=== PATIENT | male | born 1975 | race Caucasian/White ===

== ENCOUNTER 2020-05-20 14:27 | Outpatient (REF) | payer MEDICARE, MEDICAID, SELFPAY ==
--- NOTE | 2020-05-20 14:54 | MR_ITS ---
MRI OF THE BRAIN WITHOUT IV CONTRAST INDICATION: Migraine. COMPARISON: None available. TECHNIQUE: Multiplanar multisequence MR imaging of the brain was obtained without IV contrast. FINDINGS: There is no hydrocephalus, extra-axial surface collection, or herniation. There are mild to moderate T2 signal changes throughout the supratentorial subcortical and deep white matter in a nonspecific distribution. The major flow voids at the skull base are preserved. There is no acute infarct on diffusion-weighted imaging. There is no intracranial hemorrhage on the gradient recalled echo acquisition. The midline structures are normal. The cerebellar tonsils are normally positioned. The cerebellum and brainstem are normal. The craniocervical junction is normal. Osseous marrow signal intensity is homogenous. The visualized soft tissues are unremarkable. There is leftward deviation of the nasal septum with a leftward directed nasal septal spur. Mild mucosal thickening throughout the paranasal sinuses bilaterally. IMPRESSION: There are mild to moderate T2 signal changes throughout the supratentorial subcortical and deep white matter in a nonspecific distribution.
== END 2020-05-20 14:28 | disposition home or self-care (01) ==
LOC: HO.MRI 14:27
PROVIDERS: Visit Provider Family Medicine
DX: G43.019 Migraine without aura, intractable, without status migrainosus (principal)
CPT/HCPCS: 70551

== ENCOUNTER 2020-08-27 13:01 | Outpatient (REF) | payer MEDICARE, MEDICAID, SELFPAY ==
--- NOTE | 2020-08-27 13:15 | XR_ITS ---
EXAMINATION: XR CERVICAL SPINE CLINICAL INFORMATION: Neck pain. COMPARISON: None. TECHNIQUE: 3 views of the cervical spine were obtained. FINDINGS: There is mild straightening of cervical lordosis. The vertebral heights and alignment are normal. No visible acute fracture, dislocation or subluxation seen. The neural foramina are mildly narrowed bilaterally at C5-C6 and C6-C7 disc levels. No lytic or sclerotic process seen. The prevertebral soft tissues are normal. XR/XR cervical spine 4V IMPRESSION: Mild straightening of cervical lordosis. Mild bilateral narrowing of C5-C6 and C6-C7 neural foramina from uncovertebral hypertrophic changes.
== END 2020-08-27 13:02 | disposition home or self-care (01) ==
LOC: HO.XRAY 13:01
PROVIDERS: PCP Family Medicine; Visit Provider Family Medicine
DX: M54.2 Cervicalgia (principal)
CPT/HCPCS: 72050

== ENCOUNTER 2022-04-21 14:07 | Outpatient (REF) | payer MEDICARE, MEDICAID, SELFPAY ==
[2022-04-21 15:07] LABS: Alanine Aminotransferase 27 U/L (0-40); Albumin Level 4.5 g/dL (3.5-5.0); Alkaline Phosphatase 52 U/L (39-117); Aspartate Amino Transferase 19 U/L (5-37); Bilirubin Direct 0.2 mg/dL (0.0-0.5); Bilirubin Total 0.3 mg/dL (0.0-1.0); Lipase 38 U/L (8-78)
[2022-04-23 14:02] LABS: Transglutaminase Ab IgG <1.0 U/mL; Transglutaminase IgA <1.0 U/mL
== END 2022-04-21 14:08 | disposition home or self-care (01) ==
LOC: HO.LAB 14:07
PROVIDERS: PCP Family Medicine; Visit Provider Nurse Practitioner Family
DX: R10.9 Unspecified abdominal pain (principal); K59.00 Constipation, unspecified
CPT/HCPCS: 36415; 80076; 83690; 84443; 86364; 99202

== ENCOUNTER 2022-05-12 08:10 | Outpatient (REF) | payer MEDICARE, MEDICAID, SELFPAY ==
--- NOTE | ~2022-05-12 | US_ITS ---
EXAMINATION: US ABDOMEN COMPLETE CLINICAL INFORMATION: Right upper quadrant pain. COMPARISON: Ultrasound abdomen complete 09/06/2017 TECHNIQUE: Real-time imaging of the abdominal viscera. Technically limited study secondary to bowel gas. FINDINGS: PANCREAS: Not well-visualized ABDOMINAL AORTA: Not well visualized INFERIOR VENA CAVA: Not well visualized LIVER: The liver is slightly enlarged. The right lobe measures 18.4 cm in length. The liver contour is normal. Parenchymal echogenicity is normal. No focal hepatic lesion. There is no intrahepatic biliary duct dilatation seen. GALLBLADDER: Not well visualized. COMMON BILE DUCT: Normal in caliber measuring 0.3 cm in diameter. RIGHT KIDNEY: Lobulated in shape. Prominent hypoechoic area in the midpole measuring 2.3 x 1.9 x 1.8 cm, question related to lobulated contour. No hydronephrosis or renal calculi. The kidney measures 9.2 cm in maximum dimension. LEFT KIDNEY: Lobulated in shape. No hydronephrosis. No renal calculi or focal parenchymal lesions. The kidney measures 10.5 cm in maximum dimension. SPLEEN: Normal. The spleen measures 10.5 cm in maximum dimension. FREE FLUID: None. US/US abdomen complete IMPRESSION: Very limited exam. The gallbladder pancreas, aorta and IVC are not well visualized. Slightly enlarged liver. Lobulated contour of the kidneys. 2.3 x 1.8 x 3.9 cm hypoechoic area in the mid pole of the right kidney probably related to lobulated contour. Follow-up CT or MR of the kidneys for confirmation recommended.
== END 2022-05-12 08:11 | disposition home or self-care (01) ==
LOC: HO.US 08:10
PROVIDERS: Visit Provider Nurse Practitioner Family
DX: R10.11 Right upper quadrant pain (principal)
CPT/HCPCS: 76700

== ENCOUNTER 2024-06-29 11:26 | Outpatient (REF) | payer MEDICARE, MEDICAID, SELFPAY ==
[2024-06-29 13:32] LABS: Alanine Aminotransferase 30 U/L (0-40); Albumin Level 4.2 g/dL (3.5-5.0); Alkaline Phosphatase 65 U/L (39-117); Anion Gap 11 (12-20); Aspartate Amino Transferase 26 U/L (5-37); Bilirubin Direct 0.2 mg/dL (0.0-0.5); Bilirubin Total 0.5 mg/dL (0.0-1.0); Blood Urea Nitrogen 11 mg/dL (9-16); Calcium 9.2 mg/dL (8.4-10.2); Carbon Dioxide 29 mmol/L (22-29); Chloride 103 mmol/L (96-108); Cholesterol 186 mg/dL (<200); Estimated Glomerular Filt Rate > 60; Glucose Random 105 mg/dL (60-115); HDL Cholesterol 39 mg/dL (>40); LDL Cholesterol Calculated 130 mg/dL (<100); Potassium 3.6 mmol/L (3.3-5.1); Sodium 139 mmol/L (135-145); Total Protein 6.9 g/dL (6.5-8.0); Triglycerides 87 mg/dL (<150)
[2024-06-29 17:42] LABS: CT PCR NOT DETECTED (Not Detect.); NG PCR NOT DETECTED (Not Detect.)
[2024-06-30 03:53] LABS: HIV AB/AG Nonreactive (Nonreactive); HIV Num 1 0.09 S/CO (0.00-0.99); ~HepC Num1 0.13 S/CO (0.00-0.79); ~Hepatitis C Antibody Nonreactive (Nonreactive)
== END 2024-06-29 11:27 | disposition home or self-care (01) ==
LOC: HO.HHCL 11:26
PROVIDERS: Visit Provider Family Medicine
DX: Z11.4 Encounter for screening for human immunodeficiency virus [HIV] (principal); E66.811 Obesity, class 1; Z20.2 Contact with and (suspected) exposure to infections with a predominantly sexual mode of transmission
CPT/HCPCS: 36415; 80048; 80061; 80076; 86803; 87389; 87491; 87591

== ENCOUNTER 2025-02-11 10:20 | Outpatient (AMB) | payer MEDICARE, MEDICAID, SELFPAY ==
--- OUTSIDE RECORDS SUMMARY | 2024-11-13 06:30 | XMS_ITS ---
Author Organization [facility] Address [address] [place] [id number] Care Team Providers Care Migration Agent Name Role Phone Magdalena CHAPIN, Ave Primary Care Provider Bette bettyilaHu Wilson [phone] REASON FOR VISIT screening colonoscopy Encounters Encounter Location Date Provider Diagnosis [facility] [address] [place] [id number] 11/13/2024 Hu Villanueva Plan Of Treatment No Information Progress Notes * JONO PEMBERTONDOB: 6 (50 yo M)Acc No.[id number]:11/13/2024 Progress Notes Patient: JONO ONEILL Provider: Shaun Villanueva MD :1975 A ge:49 Y S ex:Male Date:11/13/2024 Address:[address] [place], [place] [id number] Pcp:Ave Nichols MD Subjective: * Chief Complaints: * 1 . Screening colonoscopy. * Medical History: Objective: * Vitals: Assessment: Plan: * Treatment: * * The named appointment provid er may or may not be the originator of this progress note, and it is not deemed complete until electronically signed by the appointment provider. Sign off status: Pending * Provider: Shaun Villanueva MD Date: 11/13/2024 Generated for Jill strange/Nataliya/Fawaditting on: 02/11/2025 11:10 AM EDT
--- NOTE | 2025-02-11 10:22 | MHC.OFFVIS ---
Vital Signs 02/11/25 10:23 Height 5 ft 7 in Weight 190 lb BMI 29.8 BP 134/78 Blood Pressure Location Rt brachial Position Sitting Pulse 76 Pulse Source Pulse Oximeter Pulse Oximetry (%) 95 Oxygen Delivery Method Room Air Intake Visit Reasons: Initial colo screening, [facility] 2021. Intake Note: NEEDS ASL INT. Initial colo rescreening. Pt last seen 2021 but never had procedure. CC; C.O. epigastric pain, diarrhea w/o hemo evidence, GERD. Sx are intermittent per pt. Pt is not taking any of his previously Rx GI meds. Technology Engineer Required: Yes Technology Engineer Services: Technology Engineer Present Technology Engineer Name: Melanie [id number] Information Interpreted: clinical only Accompanied by: Self / Same As Patient Allergies animal dander Allergy (Unknown, Verified 02/11/25 10:23) Unknown HPI HPI Initial colo screening, [facility] 2021.: Details: LAST VISIT: Abdominal pain Right upper quadrant pain and cramping postprandially. Will rule out cholecystitis cholelithiasis, biliary colic. Patient will be sent for ultrasound. Will also rule out celiac disease. Check his lipase to rule out pancreatitis. Patient does not drink alcohol RUQ abdominal pain Patient reports right upper quadrant pain just below his rib area. Patient reports also feeling bloated postprandially. Patient reports that the pain is related to the food that he eats. Usually happens postprandially. Will send patient for ultrasound to rule out cholelithiasis, cholecystitis, biliary colic. GERD (gastroesophageal reflux disease) Postprandial are heartburn, epigastric burning postprandially. Patient denies dyspepsia, dysphagia or odynophagia. Denies any nausea or vomiting. Will send patient for H pylori testing. Patient is taking lower PPI for now we can continue. Will treat empirically if positive. Patient will need to go for colonoscopy, sent to us from PCP for colorectal screening, age-appropriate. Patient will also be sent for upper endoscopy due to his symptoms and long use of PPI. I will see patient in 2 months, sooner on as needed basis. Patient is agreeable to this plan and verbalizes understanding of instructions. He was given the opportunity to ask questions and all questions answered. ? Thank you for allowing me to participate in his care Plan Orders Orders Pancreatic Elastase-1 04/21/22 R10.9 Transglutaminase IgA 04/21/22 R10.9 Transglutaminase Ab IgG 04/21/22 R10.9 H pylori Ag Stool 04/21/22 K21.9 Lipase 04/21/22 R10.9 Liver Panel 04/21/22 R10.9 TSH reflex Free T4 04/21/22 Z12.11 US abdomen complete 04/21/22 R10.11 Medications New docusate sodium 100 mg PO BEDTIME 90 caps 3RF K59.00 sennosides (Natural Senna Laxative) 8.6 mg PO BEDTIME 90 tabs 3RF constipation K59.00 TODAY'S VISIT Patient is here today to discuss going for colonoscopy. Last seen in April of 2022 for same. Patient had epigastric pain, right upper quadrant pain postprandially. Was sent for ultrasound and blood work. Ultrasound unable to visualize gallbladder and pancreas, otherwise normal blood work. Patient continues to have epigastric pain postprandially, occasional abdominal bloating. Currently is not taking any PPI. Patient to reports that usually those symptoms are aggravated by food like cheese, pizza. Patient took omeprazole in the past and reports it was helpful. Patient is not moving his bowels daily. Abdominal cramping usually before he has to have a bowel movement. Symptoms improved after patient has a bowel movement. Patient does admit to have occasional diarrhea. Sometimes several bowel movements of loose stools throughout the day. Denies melena, hematochezia. [facility] Medical History Asthma Acquired chest and rib deformity Major depressive disorder Hearing loss of both ears Review of Systems Const Denies weight gain and Denies weight loss ENT Reports no additional complaints, Denies dysphagia and Denies odynophagia Card Reports no additional complaints Resp Reports no additional complaints GI Reports abdominal pain, Denies belching, Denies melena, Reports bloating, Reports hematochezia (Occasional), Reports change in stool character, Reports constipation, Denies dysphagia, Denies excessive flatus, Denies dyspepsia, Reports heartburn, Denies diarrhea, Denies loose stools, Denies nausea, Denies odynophagia and Denies vomiting Reports no additional complaints Musc Reports no additional complaints Neuro Reports no additional complaints Psych Reports no additional complaints Endo Reports no additional complaints Physical Exam Vital Signs: Last Vital Signs Pulse 76 02/11/25 10:23 BP 134/78 02/11/25 10:23 Pulse Ox 95 02/11/25 10:23 Oxygen Delivery Method Room Air 02/11/25 10:23 BMI result Body Mass Index 29.8 Const General: healthy appearing, no acute distress and well developed Nutritional Appearance: well nourished and obese Orientation/consciousness: patient oriented x3 HEENT Head: Yes normal to inspection, Yes normocephalic and Yes atraumatic Face and sinus: Yes normal facial exam Mouth: Normal oral and palatal mucosa present Throat: Yes posterior oropharynx normal, Yes tonsils normal and Yes uvula midline Eyes General: appearance normal, both eyes and all related structures Neck Neck: Yes normal visual inspection, Yes full ROM and Yes trachea midline Thyroid: Thyroid normal Resp Effort & Inspection: normal respiratory effort, able to speak in complete sentences, no tracheal deviation and symmetric chest movement Auscultation: clear to auscultation bilaterally Cardio Rate: regular rate Heart sounds: S1 normal heart sound present, S2 normal heart sound present, no gallops and no murmurs GI Inspection: Yes normal to inspection, No distended and Yes obesity Palpation (GI): Soft to palpation, not firm, nontender and No hepatosplenomegaly present Auscultation: normal bowel sounds General: Yes no CVA tenderness Back/Spine/Pelvis Back: no CVA tenderness Skin General skin exam: elasticity normal, turgor normal and dry skin Neuro General: patient oriented x3 Psych Appearance: grossly normal Mental Status: mental status grossly normal Speech and movement: Normal speech and movement present Affect: normal affect Attitude: cooperative Thought process: Normal thought process present Thought content: Normal thought content present Insight: Good insight present (Psych) Judgement: Good judgement present (Psych) Results Reviewed Results Reviewed: Laboratory Tests 04/21/22 14:22 Total Bilirubin 0.3 Direct Bilirubin 0.2 AST 19 ALT 27 Alkaline Phosphatase 52 Tiss Transglutamin IgG <1.0 Tiss Transglutamin IgA <1.0 Assessment & Plan Assessment & Plan (1) Abdominal pain: Code(s): R10.9 - Unspecified abdominal pain Qualifiers: Abdominal location: epigastric Qualified Code(s): R10.13 - Epigastric pain (2) Gastroesophageal reflux disease: Code(s): K21.9 - Gastro-esophageal reflux disease without esophagitis Qualifiers: Esophagitis presence: esophagitis presence not specified Qualified Code(s): K21.9 - Gastro-esophageal reflux disease without esophagitis (3) Screen for colon cancer: Code(s): Z12.11 - Encounter for screening for malignant neoplasm of colon (4) Postprandial epigastric pain: Code(s): R10.13 - Epigastric pain (5) Constipation: Code(s): K59.00 - Constipation, unspecified Qualifiers: Constipation type: slow transit constipation Qualified Code(s): K59.01 - Slow transit constipation Plan Patient will start taking omeprazole every morning half an hour before breakfast. Patient was encouraged to avoid dietary triggers in late night snacking. Staying upright for minimal 3 hours after meals discussed the patient with patient will be sent for upper endoscopy. Her symptoms have been on ProAir. Without PPI patient is having significant symptoms. Discussed with him low FODMAP diet as he is having multiple episodes of abdominal bloating especially after meals. Occasional constipation and loose stools. Fiber recommended patient, however he will start taking Dulcolax to help him empty bowels completely. What to expect before during and after procedure discussed with patient. Stressed importance of good bowel prep in clear liquid diet day before procedure. Message sent to Surgical schedulers to book procedure for patient. I will see patient after the procedure, sooner on as needed basis. He is agreeable to this plan and verbalizes understanding of instructions. He was given the opportunity to ask questions and all questions answered. Thank you for allowing me to participate in his care Medications: New bisacodyl (Dulcolax (bisacodyl)) 10 mg (2 x 5 mg) PO BEDTIME 180 tabs 4RF omeprazole 20 mg PO DAILY 30 caps 3RF polyethylene glycol 3350 (Miralax) As directed by gastroenterology department at [facility] 238 grams PO ONCE 238 grams 0RF Z12.11 - Encounter for screening for malignant neoplasm of colon Discontinued sennosides (Natural Senna Laxative) Discontinued Reason: Doctor's Order 8.6 mg PO BEDTIME 90 tabs 3RF constipation K59.00 - Constipation, unspecified Coding Level of Care Code Est Pt Level 4 (18540) Complex EM visit Add On G2211 Diagnoses Epigastric pain R10.13 Abdominal location: epigastric Gastroesophageal reflux disease, unspecified whether esophagitis present K21.9 Esophagitis presence: esophagitis presence not specified Screen for colon cancer Z12.11 Postprandial epigastric pain R10.13 Slow transit constipation K59.01 Constipation type: slow transit constipation Time Spent (min) 40 Comment 20 minutes spent with patient and additional 10 minutes spent reviewing his records
[2025-02-11 10:23] VITALS: BP 134/78; PULSE 76; O2SAT 95; BMI 29.8
--- OUTSIDE RECORDS SUMMARY | 2025-02-11 11:10 | XMS_ITS | Clinical Summary ---
Author Organization [facility] Address [address] [place] [address] Care Team Providers Care Vp Training Name Role Phone Unavailable Primary Care Provider Unavailabl e Social History Tobacco Use Types Packs/Day Years Used Date Smoking Tobacco: Never Assessed Sex and Gender Information Value Date Recorded Sex Assigned at Not on file Legal Sex Male 1:27 AM EST Gender Identity Not on file Sexual Orientation Not on file Plan of Treatment Health Maintenance Due Date Last Done Comments DTaP,Tdap,and Td Vaccines (1 - Tdap) 02/06/1995 Hepatitis B Vaccines (1 of 3 - 19+ 3-dose series) 02/06/1995 Cholesterol Screening (Lipid Panel) 07/11/2022 Colorectal Cancer Screening: Colonoscopy 07/11/2022 Depression Screening 07/11/2022 HIV Screening 07/11/2022 Hepatitis C Screening 07/11/2022 Social Influencers of Health Screening 07/11/2022 COVID-19 Vaccine ( - 2023-2 5 season) 2024 Influenza Vaccine (#1) 2025 HIB Vaccines Aged Out No longer eligi ble based on patient's age to complete this topic HPV Vaccines Aged Out No longer eligi ble based on patient's age to complete this topic Hepatitis A Vaccines Aged Out No long er eligible based on patient's age to complete this topic IPV Vaccines Aged Out No longer eligi ble based on patient's age to complete this topic MMR Vaccines Aged Out No longer eligi ble based on patient's age to complete this topic Meningococcal ACWY Vaccine Aged Out N o longer eligible based on patient's age to complete this topic Meningococcal B Vaccine Aged Out No l onger eligible based on patient's age to complete this topic Pneumococcal Vaccine: Pediat rics (0 to 5 Years) and At-Risk Patients (6 to 64 Years) Aged Out No longer eligible b ased on patient's age to complete this topic RSV Immunization Patients Un sadi 20 months Aged Out No longer eligible b ased on patient's age to complete this topic Varicella Vaccines Aged Out No longer eligible based on patient's age to complete this topic
--- OUTSIDE RECORDS SUMMARY | 2025-02-11 11:11 | XMS_ITS | Encounter Summary ---
Author Organization [employer] Address [address] [facility] [address] [place] [address] Care Team Providers Care Revising Clerk Name Role Phone Ave Nichols MD Primary Care Provider [phone] Encounter Details Date Type Department Care Team ([facility] st Contact Info) Description 10/29/2024 Orders Only [facility] MEDICINE [address] [place] [address] Ave Nichols MD [address] [place] [address] Social History Tobacco Use Types Packs/Day Years Used Date Smoking Tobacco: Former Cigarettes Smokeless Tobacco: Never Alcohol Use Standard Drinks/Week Comments Not Currently 0 (1 standard drink = 0.6 oz pur e alcohol) Sex and Gender Information Value Date Recorded Sex Assigned at Male 06/07/2022 10:27 AM EDT Legal Sex Male 10:27 AM EDT Gender Identity Male 06/07/2022 10:27 AM EDT Sexual Orientation Straight 09/06/2022 4: 12 PM EST documented as of this encounter Plan of Treatment Not on file documented as of this encounter Visit Diagnoses Not on filedocumented in this encounter Care Teams Revising Clerk Relationship Specialty Start Date End Date Ave Nichols MD [address] [place] [address] PCP - General Family Medicine 08/29/14 documented as of this encounter
== END 2025-02-11 11:00 | disposition home or self-care (01) ==
LOC: HO.HGI 10:21
PROVIDERS: PCP Family Medicine; Visit Provider Nurse Practitioner Family
DX: R10.13 Epigastric pain (principal); K21.9 Gastro-esophageal reflux disease without esophagitis; K59.01 Slow transit constipation
CPT/HCPCS: 99214; G2211

== ENCOUNTER → 2025-02-11 10:20 | Outpatient (BNVA) | payer MEDICARE, MEDICAID, SELFPAY | PROVIDERS: PCP Family Medicine; Visit Provider Nurse Practitioner Family | DX: Z12.11 Encounter for screening for malignant neoplasm of colon (principal); R10.13 Epigastric pain; K21.9 Gastro-esophageal reflux disease without esophagitis; K59.01 Slow transit constipation; Z79.899 Other long term (current) drug therapy | CPT/HCPCS: 99212 ==

== ENCOUNTER 2025-06-17 10:33 | Outpatient (REF) | payer MEDICARE, MEDICAID, SELFPAY ==
--- OUTSIDE RECORDS SUMMARY | 2025-06-17 09:15 | XMS_ITS | Encounter Summary ---
Author Organization [facility] Address [address] [place] [address] [facility] [place] [address] Care Team Providers Care Industrial Renderer Name Role Phone Ave Nichols MD Primary Care Provider +1- [phone] DuaneSafiaa Unavailable Reason for Referral * Consultation (Routine) - Authorized Specialty Diagnoses / Procedures Referred By Reese frsaer Referred To Contact Dental Special Collections Librarian / Dentistry Diagnoses Bilateral deafness Closed fracture of tooth, initial encounter Ave Nichols MD [address] [place] [phone] Phone: tel: fax: Referral ID Status Reason Start Date Expiration Date Visits Requested Visits Authorized [id number] Authorized Consult and Treat 06/17/2025 06/17/2026 1 1 Scheduling Instructions broken tooth number 31. 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 Pt is deaf Reason for Visit * Reason Comments Annual Exam Encounter Details Date Type Department Care Team (Late st Contact Info) Description 06/17/2025 9:15 AM EST Office Visit [facility] [address] [place] [phone] Nichols MD [address] [place] [address] [phone] Recurrent major depressive disorder, in partial remission (CMS/HCC) (Primary Dx); Overweight (BMI 25.0-29.9); Bilateral deafness; Encounter for immunization; Mild intermittent asthma, unspecified whether complicated; Impacted cerumen of left ear; Closed fracture of tooth, initial encounter; Dietary counseling; Exercise counseling; Overweight; Other specified health status Social History Tobacco Use Types Packs/Day Years Used Date Smoking Tobacco: Former Cigarettes Smokeless Tobacco: Never Alcohol Use Standard Drinks/Week Comments Not Currently 0 (1 standard drink = 0.6 oz pur e alcohol) Depression Answer Date Recorded Patient Health Questionnaire-9 Score 4 06/17/2025 Patient Health Questionnaire-9 Score 4 06/17/2025 Last PHQ-9: Questionnaire Data Not on file 1 08/17/2024 Housing Stability Answer Date Recorded What is your housing situation today? I have doni haile 06/17/[address] you li ve. Do you have problems with any of the following? None of the above 06/17/2025 Food Insecurity Answer Date Recorded Within the past 12 months, y ou worried that your food would run out before you got money to buy more: Never True 06/17/2025 Within the past 12 months,th e food you bought just didn't last and you didn't have enough money to get more: Never True 05/2025 Transportation Answer Date Recorded In the past 12 months, has l ack of transportation kept you from medical appts, meetings, work or from getting things needed for daily living? No 06/17/2025 Utilities Answer Date Recorded In the past 12 months, has t he electric, gas, oil or water company threatened to shut off services in your home? No 06/17/2025 Depression Answer Date Recorded Patient Health Questionnaire-2 Score 0 06/17/2025 Internet Access Answer Date Recorded Internet Access Q1 No 06/17/2025 Internet Access Q2 Not on file 06/17/2025 Sex and Gender Information Value Date Recorded Sex Assigned at Male 06/07/2022 10:27 AM EDT Legal Sex Male 10:27 AM EDT Gender Identity Male 06/07/2022 10:27 AM EDT Sexual Orientation Straight 09/06/2022 4: 12 PM EST documented as of this encounter Last Filed Vital Signs Vital Sign Reading Time Taken Comments Blood Pressure 134/72 06/17/2025 9:32 AM EST Pulse 67 06/17/2025 9:32 AM EST Temperature 37.2 C (98.9 F) 06/17/2025 9:32 AM EST Respiratory Rate 20 06/17/2025 9:32 AM EST Oxygen Saturation 97% 06/17/2025 9:32 AM EST Inhaled Oxygen Concentration - - Weight 86.5 kg (190 lb 9.6 oz) 06/17/2025 9:32 A M EST Height 172.7 cm (5' 8 ) 06/17/2025 9:32 AM EST Body Mass Index 28.98 06/17/2025 9:32 AM EST documented in this encounter Functional Status * Over the past 2 weeks, how often have you been bothered by any of the following problems? Question Answer Date of Assessment Author Patient Health Questionnaire-2 Score 0 06/08 9:35 AM Sofy Griffith MA * Little interest or pleasure in doing things Answer Date of Assessment Author Not at all 06/17/2025 9:35 AM Darius Griffith MA * Feeling down, depressed, or hopeless Answer Date of Assessment Author Not at all 06/17/2025 9:35 AM Darius Griffith MA * Trouble falling or staying asleep, or sleeping too much Answer Date of Assessment Author Several days 06/17/2025 9:35 AM Darius Griffith MA * Feeling tired or having little energy Answer Date of Assessment Author Several days 06/17/2025 9:35 AM Darius Griffith MA * Poor appetite or overeating Answer Date of Assessment Author Not at all 06/17/2025 9:35 AM Darius Griffith MA * Feeling bad about yourself - or that you are a failure or have let yourself or your family down Answer Date of Assessment Author Not at all 06/17/2025 9:35 AM Darius Griffith MA * Trouble concentrating on things, such as reading the newspaper or watching television Answer Date of Assessment Author More than half the days 06/17/2025 9:35 AM EST Sofy Ritter MA * Moving or speaking so slowly that other people could have noticed? Or the opposite - being so fidgety or restless that you have been moving around a lot more than usual. Answer Date of Assessment Author Not at all 06/17/2025 9:35 AM Darius Griffith MA * Thoughts that you would be better off or hurting yourself in some way Answer Date of Assessment Author Not at all 06/17/2025 9:35 AM Darius Griffith MA * Patient Health Questionnaire-9 Score Answer Date of Assessment Author 4 06/17/2025 9:35 AM Darius Griffith MA * How difficult have these problems made it for you to do your work, take care of things at home, or get along with other people? Answer Date of Assessment Author Not difficult at all 06/17/2025 9:35 AM Sofy Plummer MA documented as of this encounter Progress Notes * Ave Nichols MD - 06/17/2025 9:15 AM EST Images from the original note were not included. Rosanne Merchant is a 50 y.o. Deaf male with mild intermittent asthma and depression who presents to the office today here for chronic medical conditions and comprehensive annual evaluation. Hungarian Sign Language used during visit Saw GI but did not get apt yet. Has prep. Reports broken tooth in lower back. Uncomfortable due to sharp but not pain. No other concerns. Social History Tobacco: denied Drugs: none Alcohol: No Sexuality: Denies current sexual activity Suicide/Depression: The patient denies any present symptoms of depression or anxiety. Review of Systems Constitutional: Negative for fever and unexpected weight change. Respiratory: Negative for shortness of breath. Cardiovascular: Negative for chest pain. Gastrointestinal: Negative for abdominal pain. Genitourinary: Negative for difficulty urinating. Current Outpatient Medications: albuterol 108 (90 Base) MCG/ACT inhaler, INHALE 2 PUFFS BY MOUTH EVERY 4 HOURS NEEDED FOR SHORTNESS OF BREATH, Disp: 8.5 g, Rfl: 4 carbamide peroxide (Debrox) 6.5 % otic solution, Administer 5-10 drops into affected ear(s) 2 timesdaily for 4 days., Disp: 30 mL, Rfl: 0 fluticasone-salmeterol (Advair) 45-21 MCG/ACT inhaler, Inhale 2 puffs in the morning and at bedtime., Disp: 12 g, Rfl: 11 Allergies Allergen Reactions Cat Dander Milk (Cow) Dunnell Oil History reviewed. No pertinent past medical history. History reviewed. No pertinent surgical history. No family history on file. Objective Visit Vitals BP 134/72 (BP Location: Left arm, Patient Position: Sitting, BP Cuff Size: Adult) Pulse 67 Temp 98.9 ??F (37.2 ??C) (Oral) Resp 20 Ht 5' 8 (1.727 m) Wt 190 lb 9.6 oz (86.5 kg) SpO2 97% BMI 28.98 kg/m?? Smoking Status Former BSA 2.04 m?? Physical Exam Constitutional: Appearance: Normal appearance. HENT: Right Ear: Tympanic membrane normal. Left Ear: There is impacted cerumen. Ears: Comments: Sensineural hearing loss Nose: Nose normal. Mouth/Throat: Pharynx: Oropharynx is clear. Comments: Cracked tooth Eyes: Extraocular Movements: Extraocular movements intact. Pupils: Pupils are equal, round, and reactive to light. Cardiovascular: Rate and Rhythm: Normal rate and regular rhythm. Heart sounds: Normal heart sounds. Pulmonary: Effort: Pulmonary effort is normal. Breath sounds: Normal breath sounds. No wheezing. Abdominal: General: Abdomen is flat. Palpations: Abdomen is soft. Tenderness: There is no abdominal tenderness. Musculoskeletal: General: Normal range of motion. Skin: General: Skin is warm and dry. Neurological: General: No focal deficit present. Mental Status: He is alert. Psychiatric: Mood and Affect: Mood normal. Behavior: Behavior normal. 50 y.o. male annual evaluation. Assessment & Plan Recurrent major depressive disorder, in partial remission (CMS/HCC) -No suicidial or homacidial ideation. Followed by [facility]. Declines therapy or medicaion. Overweight (BMI 25.0-29.9) Dietary Recommendations: Fruits, vegetables, whole grains, protein foods, and fat-free or low-fat dairy products are healthychoices. Eat different types of protein foods in your diet. This can include seafood, lean meats, poultry, beans, peas, lentils, nuts, seeds, soy products, and eggs. Limit foods and beverages higher in added sugars, saturated fat, and sodium. Exercise Recommendations: At least 150 minutes of moderate-intensity physical activity per week, or an equivalent combinationof moderate- and vigorous-intensity activity Orders: Hepatic Function Panel; Future Lipid Panel, Standard; Future Basic Metabolic Panel; Future Bilateral deafness -Patient needs multi punch operator for all visits. Please make note of this in any referrals. -has services with [facility] Orders: Referral to [facility] Dental Adult; Future Encounter for immunization Orders: FLU VACCINE TRIVALENT [id number] (Fluarix) 19 yrs + TDAP VACCINE 7 yrs + HEPATITIS B VACCINE ADULT 20 yrs + Mild intermittent asthma, unspecified whether complicated -well controlled on Advair and albuterol prn Orders: albuterol 108 (90 Base) MCG/ACT inhaler; INHALE 2 PUFFS BY MOUTH EVERY 4 HOURS NEEDED FOR SHORTNESS OF BREATH fluticasone-salmeterol (Advair) 45-21 MCG/ACT inhaler; Inhale 2 puffs in the morning and at bedtime. Impacted cerumen of left ear Orders: carbamide peroxide (Debrox) 6.5 % otic solution; Administer 5-10 drops into affected ear(s) 2 timesdaily for 4 days. Closed fracture of tooth, initial encounter Orders: Referral to [facility] Dental Adult; Future Dietary counseling Dietary Recommendations: Fruits, vegetables, whole grains, protein foods, and fat-free or low-fat dairy products are healthychoices. Eat different types of protein foods in your diet. This can include seafood, lean meats, poultry, beans, peas, lentils, nuts, seeds, soy products, and eggs. Limit foods and beverages higher in added sugars, saturated fat, and sodium. Exercise Recommendations: At least 150 minutes of moderate-intensity physical activity per week, or an equivalent combinationof moderate- and vigorous-intensity activity Exercise counseling Overweight Other specified health status -next physical exam due after 06/17/2026 -referred to [facility] 06/29/24 -dental home is [facility] -health care proxy paperwork given but he is not sure who he will put 06/29/24 Annual Evaluation -Normal growth and development. -Anticipatory guidance discussed. -Preventative care / harm reduction discussed. Follow up in about 1 year (around 06/17/2026) for physical. This note was drafted using Ambient (AI) technology. The patient/patient's guardian has been informed and has consented to the use of this technology: Yes documented in this encounter Miscellaneous Notes * Assessment & Plan Note - Ave Nichols MD - 06/17/2025 9:15 AM EST Associated Problem(s): Other specified health status -next physical exam due after 06/17/2026 -referred to [facility] 06/29/24 -dental home is [facility] -health care proxy paperwork given but he is not sure who he will put 06/29/24 * Assessment & Plan Note - Ave Nichols MD - 06/17/2025 9:15 AM EST Associated Problem(s): Recurrent major depressive disorder, in partial remission (CMS/HCC) -No suicidial or homacidial ideation. Followed by [facility]. Declines therapy or medicaion. * Assessment & Plan Note - Ave Nichols MD - 06/17/2025 9:15 AM EST Associated Problem(s): Overweight (BMI 25.0-29.9) Dietary Recommendations: Fruits, vegetables, whole grains, protein foods, and fat-free or low-fat dairy products are healthychoices. Eat different types of protein foods in your diet. This can include seafood, lean meats, poultry, beans, peas, lentils, nuts, seeds, soy products, and eggs. Limit foods and beverages higher in added sugars, saturated fat, and sodium. Exercise Recommendations: At least 150 minutes of moderate-intensity physical activity per week, or an equivalent combinationof moderate- and vigorous-intensity activity Orders: Hepatic Function Panel; Future Lipid Panel, Standard; Future Basic Metabolic Panel; Future * Assessment & Plan Note - Ave Nichols MD - 06/17/2025 9:15 AM EST Associated Problem(s): Deaf -Patient needs multi punch operator for all visits. Please make note of this in any referrals. -has services with [facility] Orders: Referral to [facility] Adult; Future * Assessment & Plan Note - Ave Nichols MD - 06/17/2025 9:15 AM EST Associated Problem(s): Mild intermittent asthma -well controlled on Advair and albuterol prn Orders: albuterol 108 (90 Base) MCG/ACT inhaler; INHALE 2 PUFFS BY MOUTH EVERY 4 HOURS NEEDED FOR SHORTNESS OF BREATH fluticasone-salmeterol (Advair) 45-21 MCG/ACT inhaler; Inhale 2 puffs in the morning and at bedtime. documented in this encounter Plan of Treatment Scheduled Referrals Name Type Priority Associated Diagnoses Orde r Schedule Referral to [facility] Adult Outpatient Referral Routine Bilateral deafness Closed fracture of tooth, initial encounter Expected: 06/17/2025 (Approximate), Expires: 06/17/2026 documented as of this encounter Procedures Procedure Name Priority Date/Time Associated Diagnosis Comments HEPATIC FUNCTION PANEL Routine 06/17/2025 10:39 AM EST Overweight (BMI 25.0-29.9) LIPID PANEL, STANDARD Routine 06/17/2025 10:39 AM EST Overweight (BMI 25.0-29.9) BASIC METABOLIC PANEL Routine 06/17/2025 10:39 AM EST Overweight (BMI 25.0-29.9) documented in this encounter Results * (ABNORMAL) Basic Metabolic Panel (06/17/2025 10:39 AM EST) Sodium 140 135 - 145 mmol/L [facility] Potassium 3.9 3.3 - 5.1 mmol/L [facility] Chloride 105 96 - 108 mmol/L [facility] Carbon Dioxide 29 22 - 29 mmol/L [facility] Anion Gap 10(L) 12 - 20 [facility] Urea Nitrogen (BUN) 17(H) 9 - 16 mg/dL [facility] Creatinine, Serum 0.90 0.5 - 1.4 mg/dL [facility] Estimated Glomerular Filt Rate >60 [facility] Comment:Chronic Kidney Disea se: Estimated GFR < 60 mL/min/1.97d8Ffblnt Kidney Disease: Estimated GFR < 15 mL/min/1.73m2 Glucose 93 60 - 115 mg/dL [facility] Calcium 9.2 8.4 - 10.2 mg/dL [facility] Blood Venous blood specimen / Unknown 06/17/2025 10:39 AM EST 06/17/2025 11:[address] Nichols MD LAB BLOOD ORDERABLES Final Result Performing Organization Address [facility] Co de Phone Number [facility] [address] [place] [address] [phone] * (ABNORMAL) Lipid Panel, Standard (06/17/2025 10:39 AM EST) Triglycerides 88 <150 mg/dL [facility] Comment:Desirable Triglyceri de: less than 150 mg/dLBorderline High Triglyceride 150-199 mg/dLHigh Triglyceride: 200-499 mg/dLVery High Triglyceride: greater than or equal to 5OO mg/dL Cholesterol 186 <200 mg/dL [facility] Comment:Desirable Cholestero l: less than 200 mg/dLBorderline High Cholesterol: 200-239 mg/dLHigh Cholesterol: greater than 239 mg/dL LDL Cholesterol Calculated 131(H) <100 mg/dL [facility] Comment:Desirable LDL: less than 100 mg/dLNear Optimal/Above Optimal LDL: 110- 129 mg/dLBorderline High LDL: 130-159 mg/dLHigh LDL: 160-189 mg/dLVery High LDL: greater than or equal to 190 mg/dL HDL Cholesterol 38(L) >40 mg/dL [facility] Comment:Desirable HDL: great er than 40 mg/dL Note: This HDL assay may give artificially low results in patients with liver disease. Blood Venous blood specimen / Unknown 06/17/2025 10:39 AM EST 06/17/2025 11:[address] Nichols MD LAB BLOOD ORDERABLES Final Result Performing Organization Address [facility]/ZIP Co de Phone Number [facility] [address] [place] [address] [phone] * Hepatic Function Panel (06/17/2025 10:39 AM EST) Bilirubin, Total 0.4 0.0 - 1.0 mg/dL [facility] Bilirubin, Direct 0.1 0.0 - 0.5 mg/dL [facility] Aspartate Amino Transferase 26 5 - 37 U/L [facility] Alanine Aminotransferase 27 0 - 40 U/L [facility] Total Protein 7.3 6.5 - 8.0 g/dL [facility] Albumin Level 4.7 3.5 - 5.0 g/dL [facility] Alkaline Phosphatase 72 39 - 117 U/L [facility] Blood Venous blood specimen / Unknown 06/17/2025 10:39 AM EST 06/17/2025 11:[address] Nichols MD LAB BLOOD ORDERABLES Final Result [facility] [address] [place] [address] [phone] documented in this encounter Visit Diagnoses Diagnosis Recurrent major depressive disorder, in partial remission (CMS/[facility])- Primary Overweight (BMI 25.0-29.9) Overweight Bilateral deafness Unspecified hearing loss Encounter for immunization Mild intermittent asthma, unspecified whether complicated Impacted cerumen of left ear Impacted cerumen Closed fracture of tooth, initial encounter Dietary counseling Dietary surveillance and counseling Exercise counseling Overweight Other specified health status documented in this encounter Additional Health Concerns Assessment Noted Time PHQ-9 Depression Total Score: 4 06/17/20 25 9:35 AM EST documented as of this encounter Care Teams Industrial Renderer Relationship Specialty Start Date End Date Ave Nichols MD [address] [place] [phone] PCP - General Family Medicine 08/29/14 Maryam Zepeda [address] [place] [address] 3rd [place] [address] Gastroenterology 02/13/25 documented as of this encounter
[2025-06-17 12:09] LABS: Alanine Aminotransferase 27 U/L (0-40); Albumin Level 4.7 g/dL (3.5-5.0); Alkaline Phosphatase 72 U/L (39-117); Anion Gap 10 (12-20); Aspartate Amino Transferase 26 U/L (5-37); Blood Urea Nitrogen 17 mg/dL (9-16); Calcium 9.2 mg/dL (8.4-10.2); Carbon Dioxide 29 mmol/L (22-29); Chloride 105 mmol/L (96-108); Cholesterol 186 mg/dL (<200); Estimated Glomerular Filt Rate > 60; HDL Cholesterol 38 mg/dL (>40); Potassium 3.9 mmol/L (3.3-5.1); Sodium 140 mmol/L (135-145); Total Protein 7.3 g/dL (6.5-8.0); Triglycerides 88 mg/dL (<150)
--- OUTSIDE RECORDS SUMMARY | 2025-06-17 12:25 | XMS_ITS | Encounter Summary ---
Author Organization [employer] [facility] Address [address] [place] [address] [facility] [place] [address] Care Team Providers Care Crossing Flagman Name Role Phone Ave Nichols MD Primary Care Provider +1- [phone] Maryam Zepeda Unavailable Encounter Details Date Type Department Care Team (Late st Contact Info) Description 10/29/2024 Orders Only [facility] [address] [place] [phone] Nichols MD [address] [place] [phone] Social History Tobacco Use Types Packs/Day Years [...] on filedocumented in this encounter Care Teams Crossing Flagman Relationship Specialty Start Date End Date Ave Nichols MD [address] [place] [phone] PCP - General Family Medicine 08/29/14 Maryam Zepeda [address] [place] [address] Drive 3rd Floor [place] [address] Gastroenterology 02/13/25 documented as of this encounter
--- OUTSIDE RECORDS SUMMARY | 2025-06-17 12:25 | XMS_ITS | Clinical Summary ---
Author Organization [facility] Address [address] [place] [address] Care Team Providers Care Subscription Agent Name Role Phone Unavailable Primary Care Provider [...] of 3 - 19+ 3-dose series) 02/06/1995 Depression Screening 08/08/2024 COVID-19 Vaccine (1 - 2024-2 6 season) 2025 Influenza Vaccine (#1) 2025 RSV Immunization Adult Patie nts (1 - 1-dose 75+ series) 02/06/2051 HIB Vaccines Aged Out No longer eligi [...] 5 Years) and At-Risk Patients (6 to 49 Years) Aged Out No longer eligible b ased on patient's age to complete this topic RSV Immunization Patients Un sadi 20 months Aged Out No longer eligible b ased on patient's age to complete this topic Varicella Vaccines Aged Out No longer eligible based on patient's age to complete this topic
--- OUTSIDE RECORDS SUMMARY | 2025-06-17 12:25 | XMS_ITS | Encounter Summary ---
Author Organization [employer] Address [address] [facility] [place] [address] Care Team Providers Care Master Black Belt Name Role Phone Ave Nichols MD Primary Care Provider +1- [phone] Duane Maryam Unavailable Reason for Visit * Reason Onset Date Comments Call Back Request 10/22/2024 Encounter Details Date Type Department Care Team (Late st Contact Info) Description 10/22/2024 Telephone [facility] [address] [place], [place] [phone] Nichols MD [address] [place], [place] [phone] Call Back Request Social History Tobacco Use Types Packs/Day Years [...] PM EST documented as of this encounter Miscellaneous Notes * Telephone Encounter - Deyanira Boss RN - 10/23/2024 9:58 AM EDT TC placed to [facility] and spoke to Almaz again about the pt GI referral and to see if thereis any way that they can call [facility] to see if the appt can be expedited. Almaz stated that she doesnot feel that she can do anything move up the pt appt date. Almaz recommended calling [facility] to see when they are booking out until. RN placed the call to [facility] and left a detailed VM to call back the office to inquire when the pt could potentially be seen. * Telephone Encounter - Deyanira Boss RN - 10/22/2024 2:52 PM EDT TC from Almaz with [facility] to inform PCP that they do not currently have the resources to assist the pt with ASL interpreting. Almaz was hoping that the pt might be referred to [facility] as they are known to have the capability to do this. Almaz would like a callback with the status of the referral so that she can let Dr. Villanueva know. * Telephone Encounter - Glendy Stoner - 10/22/2024 11:14 AM EDT Tc from Almaz with [facility] requesting to speak to a nurse , conventional underwriter try reaching out as nursescurrently busy , Almaz cut off called. Please return call to [phone] documented in this encounter Plan of Treatment Not on file documented as of this encounter Visit Diagnoses Not on filedocumented in this encounter Care Teams Master Black Belt Relationship Specialty Start Date End Date Ave Nichols MD [address] [place] [phone] PCP - General Family Medicine 08/29/14 Maryam Zepeda [address] [place] [address] [address] [place] [address] Gastroenterology 02/13/25 documented as of this encounter
--- OUTSIDE RECORDS SUMMARY | 2025-06-17 12:25 | XMS_ITS | Encounter Summary ---
Author Organization [employer] Address [address] [facility] 7t [place] [address] Care Team Providers Care Film Critic Name Role Phone Ave Nichols MD Primary Care Provider +1- [phone] DuaneMaryam nguyen Unavailable Reason for Visit * Reason Onset Date Comments Med Refill 06/17/2025 Encounter Details Date Type Department Care Team (Late st Contact Info) Description 06/17/2025 Refill [facility] P[facility]S [address] [place] [address] [address] Nichols MD [address] [place], [place] [phone] Mild intermittent asthma, unspecified whether complicated Social History Tobacco Use Types Packs/Day Years [...] PM EST documented as of this encounter Functional Status * Over the [...] than half the days 06/17/2025 9:35 AM Sofy Olson MA * Moving or speaking so slowly [...] Plummer MA documented as of this encounter Miscellaneous Notes * Telephone Encounter - Tammie Cortés LPN - 06/17/2025 10:15 AM EST Medication pended again transmission to pharmacy failed. documented in this encounter Plan of Treatment Not on file documented as of this encounter Visit Diagnoses Diagnosis Mild intermittent asthma, unspecified whether complicated documented in this encounter Additional Health Concerns Assessment Noted Time PHQ-9 Depression Total Score: 4 06/17/20 9:35 AM EST documented as of this encounter Care Teams Film Critic Relationship Specialty Start Date End Date Ave Nichols MD [address] [place] [phone] PCP - General Family Medicine 08/29/14 Maryam Zepeda [address] [place] [address] 3rd [place] [address] Gastroenterology 02/13/25 documented as of this encounter
--- OUTSIDE RECORDS SUMMARY | 2025-06-17 12:26 | XMS_ITS | Clinical Summary ---
Author Organization [facility] Address [address] [facility] 7 [place] [address] Care Team Providers Care Vat House Supervisor Name Role Phone Ave Nichols MD Primary Care Provider +1- [phone] Maryam Zepeda Unavailable Allergies Active Allergy Reactions Criticality Noted Date Comments Cat Dander High 04/21/2016 Milk (Cow) High 04/21/2016 [place] Oil High 04/21/2016 Medications carbamide peroxide (Debrox) 6.5 % otic solutionIndicat ions:Impacted cerumen of left ear Administer 5-10 drops into affected ear(s) 2 times daily for 4 days. 30 mL 06/17/20 25 025 Active albuterol 108 (90 Base) MCG/ACT inhalerIndicati ons:Mild intermittent asthma, unspecified whether complicated INHALE 2 PUFFS BY MOUTH EVERY 4 HOURS NEEDED FOR SHORTNESS OF BREATH 8.5 g 4 06/17/20 25 Active fluticasone-gabi meterol (Advair) 45-21 MCG/ACT inhalerIndicati ons:Mild intermittent asthma, unspecified whether complicated INHALE 2 PUFFS BY MOUTH IN THE MORNING AND AT BEDTIME 12 g 11 06/17/20 25 Active fluticasone-gabi meterol (Advair) 45-21 MCG/ACT inhalerIndicati ons:Mild intermittent asthma, unspecified whether complicated INHALE 2 PUFFS IN THE MORNING AND AT BEDTIME 12 g 11 12/05/19 24 025 Discontinued(R eorder (will not trigger notification to Pharmacy)) albuterol 108 (90 Base) MCG/ACT inhalerIndicati ons:Mild intermittent asthma, unspecified whether complicated INHALE 2 PUFFS BY MOUTH EVERY 4 HOURS NEEDED FOR SHORTNESS OF BREATH 8.5 g 4 10/20/19 25 025 Discontinued(R eorder (will not trigger notification to Pharmacy)) fluticasone-gabi meterol (Advair) 45-21 MCG/ACT inhalerIndicati ons:Mild intermittent asthma, unspecified whether complicated Inhale 2 puffs in the morning and at bedtime. 12 g 11 06/17/20 25 025 Discontinued albuterol 108 (90 Base) MCG/ACT inhalerIndicati ons:Mild intermittent asthma, unspecified whether complicated INHALE 2 PUFFS BY MOUTH EVERY 4 HOURS NEEDED FOR SHORTNESS OF BREATH 8.5 g 4 06/17/20 25 025 Discontinued albuterol 108 (90 Base) MCG/ACT inhalerIndicati ons:Mild intermittent asthma, unspecified whether complicated INHALE 2 PUFFS BY MOUTH EVERY 4 HOURS NEEDED FOR SHORTNESS OF BREATH 8.5 g 4 06/17/20 25 025 Discontinued(R eorder (will not trigger notification to Pharmacy)) fluticasone-gabi meterol (Advair) 45-21 MCG/ACT inhalerIndicati ons:Mild intermittent asthma, unspecified whether complicated Inhale 2 puffs in the morning and at bedtime. 12 g 11 06/17/20 25 025 Discontinued(R eorder (will not trigger notification to Pharmacy)) albuterol 108 (90 Base) MCG/ACT inhalerIndicati ons:Mild intermittent asthma, unspecified whether complicated INHALE 2 PUFFS BY MOUTH EVERY 4 HOURS NEEDED FOR SHORTNESS OF BREATH 8.5 g 4 06/17/20 25 025 Discontinued(R eorder (will not trigger notification to Pharmacy)) fluticasone-gabi meterol (Advair) 45-21 MCG/ACT inhalerIndicati ons:Mild intermittent asthma, unspecified whether complicated Inhale 2 puffs in the morning and at bedtime. 12 g 11 06/17/20 25 025 Discontinued(R eorder (will not trigger notification to Pharmacy)) albuterol 108 (90 Base) MCG/ACT inhalerIndicati ons:Mild intermittent asthma, unspecified whether complicated INHALE 2 PUFFS BY MOUTH EVERY 4 HOURS NEEDED FOR SHORTNESS OF BREATH 8.5 g 4 06/17/20 25 025 Discontinued(R eorder (will not trigger notification to Pharmacy)) fluticasone-gabi meterol (Advair) 45-21 MCG/ACT inhalerIndicati ons:Mild intermittent asthma, unspecified whether complicated Inhale 2 puffs in the morning and at bedtime. 12 g 11 06/17/20 25 025 Discontinued(R eorder (will not trigger notification to Pharmacy)) Active Problems Problem Noted Date Diagnosed Date Overweight (BMI 25.0-29.9) 06/28/2024 Overview (06/17/2025): Dietary Recommendations: Fruits, vegetables, whole grains, protein foods, and fat-free or low-fat dairy products are healthy choices. Eat different types of protein foods in your diet. This can include seafood, lean meats, poultry, beans, peas, lentils, nuts, seeds, soy products, and eggs. Limit foods and beverages higher in added sugars, saturated fat, and sodium. Exercise Recommendations: At least 150 minutes of moderate-intensity physical activity per week, or an equivalent combination of moderate- and vigorous-intensity activity Assessment & Plan (06/17/2025 11:58 AM EST): Dietary Recommendations: Fruits, vegetables, whole grains, protein foods, and fat-free or low-fat dairy products are healthy choices. Eat different types of protein foods in your diet. This can include seafood, lean meats, poultry, beans, peas, lentils, nuts, seeds, soy products, and eggs. Limit foods and beverages higher in added sugars, saturated fat, and sodium. Exercise Recommendations: At least 150 minutes of moderate-intensity physical activity per week, or an equivalent combination of moderate- and vigorous-intensity activity Orders: Hepatic Function Panel; Future Lipid Panel, Standard; Future Basic Metabolic Panel; Future Assessment & Plan (07/04/2024 9:54 AM EST): -ordered labs 06/29/24 Colon cancer screening 09/14/2023 Overview (02/13/2025): -colorectal referral placed 06/29/24, call from [facility] 10/22/24 asking to send referral to [facility] due to needs jet pilot. Will place referral and ask [facility] to expedite [facility] referral. -intake for colonoscopy with Dr. Zepeda done 02/07/25 Assessment & Plan (07/04/2024 9:55 AM EST): -colorectal referral placed 06/29/24 Illiteracy 06/14/2023 06/14/2023 Other specified health status 06/14/2023 Overview (06/17/2025): -next physical exam due after 06/17/2026 -referred to [facility] 06/29/24 -dental home is [facility] -health care proxy paperwork given but he is not sure who he will put 06/29/24 Assessment & Plan (06/17/2025 11:58 AM EST): -next physical exam due after 06/17/2026 -referred to [facility] 06/29/24 -dental home is [facility] -health care proxy paperwork given but he is not sure who he will put 06/29/24 Assessment & Plan (07/04/2024 10:00 AM EST): -next physical exam due after 06/29/25 -referred to [facility] 06/29/24 -dental home is [facility] -health care proxy paperwork given but he is not sure who he will put 06/29/24 Mild intermittent asthma 02/16/2022 023 Overview (06/17/2025): -well controlled on Advair and albuterol prn Assessment & Plan (06/17/2025 11:58 AM EST): -well controlled on Advair and albuterol prn Orders: albuterol 108 (90 Base) MCG/ACT inhaler; INHALE 2 PUFFS BY MOUTH EVERY 4 HOURS NEEDED FOR SHORTNESS OF BREATH fluticasone-salmeterol (Advair) 45-21 MCG/ACT inhaler; Inhale 2 puffs in the morning and at bedtime. Assessment & Plan (07/03/2024 1:09 PM EST): -well controlled on albuterol prn Posterior neck pain 02/16/2022 06/14/2023 Acquired chest and rib deformity 08/29/2014 06/14/2023 Recurrent major depressive disorder, in partial remission 08/29/2014 06/14/2023 Overview (07/01/2024): -No suicidial or homacidial ideation. Followed by [facility]. Declines therapy or medicaion. Assessment & Plan (06/17/2025 11:58 AM EST): -No suicidial or homacidial ideation. Followed by [facility]. Declines therapy or medicaion. Assessment & Plan (07/03/2024 1:09 PM EST): -No suicidial or homacidial ideation. Followed by [facility]. Declines therapy or medicaion. Deaf 08/29/2014 06/14/2023 Overview (06/17/2025): -Patient needs jet pilot for all visits. Please make note of this in any referrals. -has services with [facility] Assessment & Plan (06/17/2025 11:58 AM EST): -Patient needs jet pilot for all visits. Please make note of this in any referrals. -has services with [facility] Orders: Referral to [facility]; Future Assessment & Plan (07/03/2024 1:09 PM EST): -Patient needs jet pilot for all visits. Please make note of this in any referrals. Tobacco dependence syndrome 08/29/[address] 02/2023 Overview (07/01/2024): -quit May 2024 Assessment & Plan (07/04/2024 10:00 AM EST): -quit May 2024 Resolved Problems Problem Noted Date Diagnosed Date Resolved Date Major depression single epis ode, in partial remission 06/14/2023 06/14/2023 07/01/2024 Condyloma acuminatum 04/21/2016 06/14/2023 024 Encounters Date Type Department Care Team Description 06/17/2025 9:15 AM EST Office Visit [address] [address] [address] MD Recurrent major depressive disorder, in partial remission ([facility]) (Primary Dx); Overweight (BMI 25.0-29.9); Bilateral deafness; Encounter for immunization; Mild intermittent asthma, unspecified whether complicated; Impacted cerumen of left ear; Closed fracture of tooth, initial encounter; Dietary counseling; Exercise counseling; Overweight; Other specified health status 06/17/2025 Refill [facility] PEDS [address] [place], [place] [phone] Ave Nichols MD Mild intermittent asthma, unspecified whether complicated 06/17/2025 Travel 06/14/[address] [address] [address] Nichols MD chart prep 06/10/2025 Patient Outreach [phone] Nichols MD Pre-visit Planning (Pre-visit planning - LVM ) 04/17/[phone] Nichols MD from Last 3 Months Immunizations Immunization Administration Dates Next Due Hep A, Adult 06/29/2024 Hep B, adult 06/17/2025,06/29/2024 Influenza injectable quadriv alent IIV4 with preservative 08/10/2017,09/01/2015 Influenza injectable quadriv alent preservative free 08/27/2020,09/03/2019,08/10/2018,09/02 Influenza, IIV3, injectable 08/29/2014,1 08/22/2012,06/22/2012,08/27 Influenza, seasonal, injecta ble, preservative free 06/17/2025,07/07/2014 Moderna Covid-19 Vaccine 12+ 02/12/2022,12/05/19 21,11/07/2020 Pneumococcal Conjugate PCV 20 06/29/2024 Pneumococcal Polysaccharide PPSV23 08/29,07/07/2014,12/21/2011,08/10 Tdap 06/17/2025,08/29/2014,08/27/2010 Social History Tobacco Use Types Packs/Day Years Used Date Smoking Tobacco: Former Cigarettes Smokeless Tobacco: Never Tobacco Cessation:Counseling Given: Not Answered Alcohol Use Standard Drinks/Week Comments Not Currently [...] Orientation Straight 09/06/2022 4: 12 PM EST Last Filed Vital Signs Vital Sign Reading [...] Mass Index 28.98 06/17/2025 9:32 AM EST Plan of Treatment Health Maintenance Due Date Last Done Comments CT Colonography 1976 Colonoscopy 1976 Colorectal Cancer Screening 1976 FIT DNA/Cologuard 1976 FIT 1976 FOBT 1976 Sigmoidoscopy 1976 COVID-19 Vaccine ( season) 2025 02/12/2022, 12/04/2020, 11/07/2020 Hepatitis B Vaccines (3 of 3 - 19+ 3-dose series) 08/12/2025 06/17/2025, 06/29/2024 Zoster Vaccines (1 of 2) 02/06/2026 Alcohol/Substance Use Screening 06/17/2026 06/17/2025 Depression Screening 06/17/2026 06/17/2025, 06/17/20 25 Disability Screening 06/17/2026 06/17/2025 Family Planning (PISQ) 06/17/2026 06/17/2025 SDOH Screening 06/17/2026 06/17/2025 Tobacco Screening 06/17/2026 06/17/2025 Lipid Panel 06/17/2030 06/17/2025, 06/29/2024 DTaP/Tdap/Td Vaccines (4 - Td or Tdap) 06/17/2035 06/17/2025, 08/29/2014, 08/27/2010 RSV Patients and Patients Aged 60 years or older (1 - 1-dose 75+ series) 02/06/2051 HIV Screening Completed 06/29/2024, 09/02/2016 Hepatitis A Vaccines Aged Out 06/29/2024 No long er eligible based on patient's age to complete this topic Hepatitis C Screening Completed 06/29/2024 Pneumococcal Vaccine: Pediatrics (0 to 5 Years) and At-Risk Patients (6 to 49) Years Completed 06/29/2024, 08/29/2014, 07/07/2014, Additional history exists Influenza Vaccine Completed 06/17/2025, , 09/03/2019, Additional history exists HIB Vaccines Aged Out No longer eligi [...] patient's age to complete this topic Meningococcal Vaccine Aged Out No peyman red eligible based on patient's age to complete this topic RSV under 20 months Aged Out No longe r eligible based on patient's age to complete this topic Rotavirus Vaccines Aged Out No longer eligible based on patient's age to complete this topic Procedures Procedure Name Priority Date/Time Associated Diagnosis Comments BASIC METABOLIC PANEL Routine 06/17/2025 10:39 AM EST Overweight (BMI 25.0-29.9) LIPID PANEL, STANDARD Routine 06/17/2025 10:39 AM EST Overweight (BMI 25.0-29.9) HEPATIC FUNCTION PANEL Routine 06/17/2025 10:39 AM EST Overweight (BMI 25.0-29.9) HEPATITIS C AB W/REFL TO HCV RNA, QN, PCR Routine 06/29/2024 11:28 AM EST Routine screening for STI (sexually transmitted infection) HIV 1/2 ANTIGEN/ANTIBODY, FOURTH GENERATION W/RFL Routine 06/29/2024 11:28 AM EST Routine screening for STI (sexually transmitted infection) from Last 3 Months or Most Recently Relevant to Health Maintenance Results * Hepatic Function Panel (06/17/2025 10:39 AM EST) Bilirubin, Total 0.4 0.0 - 1.0 mg/dL [facility] Bilirubin, Direct 0.1 0.0 - 0.5 mg/dL [facility] Aspartate Amino Transferase 26 5 - 37 U/L [facility] Alanine Aminotransferase 27 0 - 40 U/L [facility] Total Protein 7.3 6.5 - 8.0 g/dL [facility] Albumin Level 4.7 3.5 - 5.0 g/dL [facility] Alkaline Phosphatase 72 39 - 117 U/L [facility] Blood Venous blood specimen / Unknown 06/17/2025 10:39 AM EST 06/17/2025 11:[address] Nichols MD LAB BLOOD ORDERABLES Final Result [facility] [address] [place] [phone] * (ABNORMAL) Lipid Panel, Standard (06/17/2025 10:39 AM EST) Triglycerides 88 <150 mg/dL [facility] Comment:Desirable Triglyceri de: less than 150 mg/dLBorderline High Triglyceride 150-199 mg/dLHigh Triglyceride: 200-499 mg/dLVery High Triglyceride: greater than or equal to 5OO mg/dL Cholesterol 186 <200 mg/dL [facility] Comment:Desirable Cholestero l: less than 200 mg/dLBorderline High Cholesterol: 200-239 mg/dLHigh Cholesterol: greater than 239 mg/dL LDL Cholesterol Calculated 131(H) <100 mg/dL [facility] Comment:Desirable LDL: less than 100 mg/dLNear Optimal/Above Optimal LDL: 110- 129 mg/dLBorderline High LDL: 130-159 mg/dLHigh LDL: 160-189 mg/dLVery High LDL: greater than or equal to 190 mg/dL HDL Cholesterol 38(L) >40 mg/dL [facility] Comment:Desirable HDL: great er than 40 mg/dL Note: This HDL assay may give artificially low results in patients with liver disease. Blood Venous blood specimen / Unknown 06/17/2025 10:39 AM EST 06/17/2025 11:[address] Nichols MD LAB BLOOD ORDERABLES Final Result Performing Organization Address City/[facility]/ZIP Co de Phone Number [facility] [address] [place] [phone] * (ABNORMAL) Basic Metabolic Panel (06/17/2025 10:39 AM EST) Sodium 140 135 - 145 mmol/L [facility] Potassium 3.9 3.3 - 5.1 mmol/L [facility] Chloride 105 96 - 108 mmol/L [facility] Carbon Dioxide 29 22 - 29 mmol/L [facility] Anion Gap 10(L) 12 - 20 [facility] Urea Nitrogen (BUN) 17(H) 9 - 16 mg/dL [facility] Creatinine, Serum 0.90 0.5 - 1.4 mg/dL [facility] Estimated Glomerular Filt Rate >60 [facility] Comment:Chronic Kidney Disea se: Estimated GFR < 60 mL/min/1.48t2Mjliro Kidney Disease: Estimated GFR < 15 mL/min/1.73m2 Glucose 93 60 - 115 mg/dL [facility] Calcium 9.2 8.4 - 10.2 mg/dL [facility] Blood Venous blood specimen / Unknown 06/17/2025 10:39 AM EST 06/17/2025 11:[address] Nichols MD LAB BLOOD ORDERABLES Final Result [facility] [address] [place] [phone] * Hepatitis C Antibody with Reflex to HCV, RNA, Quantitative, Real-Time PCR (06/29/2024 11:28 AM EST) Hepatitis C Antibody Nonreactive Nonreactive [facility] Comment:Antibodies to HCV no t detected; does not exclude early acuteHCV infection. Blood Venous blood specimen / Unknown 06/29/2024 11:28 AM EST 06/29/2024 1:[address] Nichols MD LAB BLOOD ORDERABLES Final Result Performing Organization Address [facility] de Phone Number [facility] [address] [place] [phone] * HIV-1/2 Antigen and Antibodies, Fourth Generation, with Reflexes (06/29/2024 11:28 AM EST) Pathologist [facility] HIV AB/AG Nonreactive Nonreactive [facility] Comment:HIV-1 p24 Ag and/or HIV-1/HIV-2 Ab not detected.A test result that is nonreactive does not exclude thepossibility of exposure to or infection with HIV-1 and/orHIV-2. Nonreactive results in this assay for individualswith prior exposure to HIV-1 and/or HIV-2 may be due toantigen and antibody levels that are below the limit ofdetection of this assay.The [employer] HIV Ag/Ab Combo assay result andsupplemental assay results should be interpreted inconjunction with the patient's clinical presentation,history and other laboratory results. If the results areinconsistent with clinical evidence, additional testing issuggested to confirm the result. Blood Venous blood specimen / Unknown 06/29/2024 11:28 AM EST 06/29/2024 1:[address] Nichols MD LAB BLOOD ORDERABLES Final Result Performing Organization Address [facility]/ZIP Co de Phone Number [facility] [address] [place] [phone] from Last 3 Months or Most Recently Relevant to Health Maintenance Insurance MEDICARE [facility] Care Teams Vat House Supervisor Relationship Specialty Start Date End Date Ave Nichols MD [address] [place] [address] PCP - General Family Medicine 08/29/14 Maryam Zepeda [address] [place] [address] 3rd [place] [address] Gastroenterology 02/13/25
--- OUTSIDE RECORDS SUMMARY | 2025-06-17 12:26 | XMS_ITS | Encounter Summary ---
Author Organization [employer] Address [address] [facility] [place] [address] Care Team Providers Care Security Director Name Role Phone Ave Nichols MD Primary Care Provider [phone]- [phone] Duane Maryam Unavailable Reason for Visit * Reason Onset Date Comments chart prep 06/14/2025 Encounter Details Date Type Department Care Team (Late st Contact Info) Description 06/14/2025 Telephone [facility] MEDICINE [address] [place], [place] [phone] Nichols MD [address] [place], [place] [phone] chart prep Social History Tobacco Use Types Packs/Day Years [...] encounter Miscellaneous Notes * Telephone Encounter - Usha Bonilla MA - 06/14/2025 10:41 AM EST Chart Prep Labs: not applicable Images: not applicable Referrals: complete Vaccines due: Covid, Flu, Tdap, and Hep B Screenings: colonoscopy Overdue care gaps: SBIRT, SDOH, PHQ-9, JENNY-7, Oral health screening, and Disability screen documented in this encounter Plan of Treatment Not on file documented as of this encounter Visit Diagnoses Not on filedocumented in this encounter Care Teams Security Director Relationship Specialty Start Date End Date Ave Nichols MD [address] [place] [phone] PCP - General Family Medicine 08/29/14 Maryam Zepeda [address] [place] [address] 3rd [place] [address] Gastroenterology 02/13/25 documented as of this encounter
--- OUTSIDE RECORDS SUMMARY | 2025-06-17 12:26 | XMS_ITS | Encounter Summary ---
Author Organization [employer] Address 75 [facility] 7t [place] [address] Care Team Providers Care Medical Office Supervisor Name Role Phone Ave Nichols MD Primary Care Provider +1- [phone] DuaneSafiaa Unavailable Encounter Details Date Type Department Care Team (Latest Contact Info) Description 06/17/2025 Travel Social History Tobacco Use Types Packs/Day Years [...] Author Not at all 06/17/2025 9:35 AM BRYANNA Ray, Darius brooks MA * Thoughts that you would be [...] Not difficult at all 06/17/2025 9:35 AM EST Sofy Mcmillan MA documented as of this encounter Plan of Treatment Not on file documented as of this encounter Visit Diagnoses Not on filedocumented in this encounter Additional Health Concerns Assessment Noted Time PHQ-9 Depression Total Score: 4 06/17/20 25 9:35 AM EST documented as of this encounter Care Teams Medical Office Supervisor Relationship Specialty Start Date End Date Ave Nichols MD [address] [place] [address] [place] [address] PCP - General Family Medicine 08/29/14 Maryam Zepeda [address] [place] [address] 3rd [place] [address] Gastroenterology 02/13/25 documented as of this encounter
== END 2025-06-17 10:34 | disposition home or self-care (01) ==
LOC: HO.HHCL 10:33
PROVIDERS: PCP Family Medicine; Visit Provider Family Medicine
DX: E66.3 Overweight (principal)
CPT/HCPCS: 36415; 80048; 80061; 80076